=== PATIENT | male | born 1950 | race Caucasian/White ===

== ENCOUNTER 2020-01-12 06:22 | Day surgery (SDC) | payer MEDICARE, OTHER ==
[2020-01-11 08:30] LABS: COVID AG,FIA SOURCE NASOPHARYNGEAL
[~2020-01-12] VITALS: Ht 170.2 cm; Wt 88.6 kg
[~2020-01-12 06:22] MED LIST: SODIUM CHLORIDE 0.9% 1,000 ML ONE
[2020-01-12] MEDS ORDERED: LIDOCAINE 2% 30 ML JELLY TP ONE (06:23)
[2020-01-12] MEDS ORDERED: LIDOCAINE 4% 50 ML SOLUTION TP ONE (06:23)
[2020-01-12] MEDS ORDERED: BENZOCAINE 20% 50 MCG/SPRAY 57 GM TP ONE (06:23)
[2020-01-12] MEDS ORDERED: ALBUTEROL SULFATE 2.5 MG/0.5 ML NEB SOLUTION NEB ONE (06:23)
[2020-01-12] MEDS ORDERED: SODIUM CHLORIDE 0.9% 1,000 ML IV ONE (06:30)
[2020-01-12] MEDS ORDERED: SODIUM CHLORIDE 0.9% 1,000 ML ONE (06:48)
[2020-01-12] MEDS ORDERED: ALBU8HFA IH (07:06)
[2020-01-12] MEDS ORDERED: RIVA15T PO (07:06)
[2020-01-12] MEDS ORDERED: LOSA25TA21 PO (07:06)
[2020-01-12] MEDS ORDERED: FLUT1BLS10 IH (07:06)
[2020-01-12] MEDS ORDERED: FAMO20 PO (07:06)
[2020-01-12] MEDS ORDERED: CETI-450 PO (07:06)
[2020-01-12] MEDS ORDERED: MONT-35 PO (07:06)
[2020-01-12] MEDS ORDERED: PRAV20TA4 PO (07:06)
[2020-01-12] MEDS ORDERED: FLUT16H NASAL (07:06)
[2020-01-12] MEDS ORDERED: MIDAZOLAM HCL 2 MG/2 ML VIAL ONE (07:32)
[2020-01-12] MEDS ORDERED: FentaNYL CITRATE-PF 100 MCG/2 ML VIAL ONE (07:32)
[2020-01-12] MEDS ORDERED: MethylPREDNISolone SOD SUCC 125 MG/2 ML VIAL IVP ONE (09:00)
[2020-01-12] MEDS ORDERED: MethylPREDNISolone SOD SUCC 125 MG/2 ML VIAL ONE (09:26)
[2020-01-12] MEDS ORDERED: PHYTONADIONE 10 MG/1 ML AMP IM ONE (10:00)
[2020-01-12] MEDS ORDERED: OXYGEN THERAPY IH SCH (20:00)
== END 2020-01-12 11:05 | disposition home or self-care (01) ==
LOC: SURGERY 06:22
PROVIDERS: ATTEND Internal Medicine Critical Care Medicine
DX: J38.4 Edema of larynx (principal); B37.0 Candidal stomatitis; Z98.890 Other specified postprocedural states; Z98.52 Vasectomy status; E78.00 Pure hypercholesterolemia, unspecified
CPT/HCPCS: 31623; 31624; 71045; 87015; 87070; 87101; 87205; 87206; 87220; 87426; 88108; 88312; C9803; J2250; J2930; J3010; J3430; J7030; J7613; Z7610